=== PATIENT | female | born 1980 | race Caucasian/White ===

== ENCOUNTER 2016-10-08 19:14 | Emergency (ER) | payer OTHER, MEDICAID ==
[~2016-10-08] VITALS: Ht 170.2 cm; Wt 63.5 kg
[2016-10-08 19:19] VITALS: BP_SYST 126
--- NOTE | 2016-10-08 19:30 | NUR ---
Patient to ER bed 04 to gown for evaluation. Side rails up. Report given to SONIA.
--- NOTE | 2016-10-08 19:42 | NUR ---
Pt presents to ED with c/o bilateral feet swelling , various wound noted at lateral and medial aspect of bilateral feet, stage 1 and 2 ulcer, approximated, no discharge. Pt reported history of meth use, most recent use was 3 days ago. Appeared paranoid, stating "bugs in my eyes, tongue, under my skin, in my urine. Diarrhea from my vagina". Pt calm and cooperative, A&Ox4, denies N/V/D, denies SOB or chestpain. Will continue to monitor
--- NOTE | 2016-10-08 20:07 | NUR ---
Dr Lucero at bedside examining patient
[2016-10-08 20:27] LABS: BILIRUBIN,URINE 1+ (NEGATIVE); BLOOD, URINE NEGATIVE (NEGATIVE); CLARITY/URINE CLEAR (CLEAR); COLOR,URINE AMBER (YELLOW); GLUCOSE,URINE NEGATIVE (NEGATIVE); KETONES,URINE TRACE (NEGATIVE); LEUKOCYTE ESTERASE ,URINE NEGATIVE (NEGATIVE); NITRITE, URINE NEGATIVE (NEGATIVE); PH,URINE 6.5 (5.0-8.0); PROTEIN URINE 2+ (NEGATIVE)
--- NOTE | 2016-10-08 20:30 | NUR ---
Pelvic exam performed by Dr Lucero with RN at bedside for entire examination. Patient tolerated procedure . Patient assisted to position of comfort after examination.Tampon removed from vaginal area, procedure well tolerated.
[2016-10-08 20:36] LABS: BASOPHILS % (AUTO) 0.6 % (0.0-2.0); EOSINOPHILS # (AUTO) 0.1 K/uL (0.0-0.4); EOSINOPHILS % (AUTO) 0.9 % (0.0-4.0); HEMOGLOBIN 12.1 g/dL (12.0-16.0); LYMPHOCYTES % (AUTO) 29.5 % (20.5-51.5); MEAN CORPUSCULAR HEMOGLOBIN 33 pg (27-31); MEAN CORPUSCULAR HGB CONC 34 % (32-36); MEAN CORPUSCULAR VOLUME 95 fL (79.0-98.0); MONOCYTES # (AUTO) 0.6 K/uL (0.0-1.0); MONOCYTES % (AUTO) 8.3 % (1.7-9.3); NEUTROPHILS % (AUTO) 60.7 % (40.0-70.0); PLATELET COUNT (AUTO) 321 K/uL (130-430); RED BLOOD CELL COUNT(AUTO) 3.71 MIL/uL (4.2-6.2); RED CELL DISTRIBUTION WIDTH 11.8 % (9.0-15.0); WHITE BLOOD COUNT (AUTO) 6.7 K/uL (4.8-10.8)
[2016-10-08 20:47] LABS: CALCIUM 8.9 mg/dL (8.4-11.0); CREATININE 0.81 mg/dL (0.55-1.30); POTASSIUM 3.4 mmol/L (3.5-5.1)
[2016-10-08 20:52] LABS: ALBUMIN 3.8 g/dL (3.4-4.8); TOTAL BILIRUBIN 0.4 mg/dL (0.0-1.0); TOTAL PROTEIN, SERUM 7.8 g/dL (6.4-8.3)
[2016-10-08] MEDS ORDERED: BACITRACIN 1 GM OINT TP ONE (20:59)
[2016-10-08 21:02] LABS: PROTHROMBIN TIME 11.2 SECS (9.5-12.5)
[2016-10-08 21:07] LABS: BENZODIAZEPINE, URINE POSITIVE (NEG <=150); CANNABINOID, URINE POSITIVE (NEG <=50); METHAMPHETAMINES SCREEN,URINE POSITIVE (NEG <=500); URINE AMPHETAMINE POSITIVE (NEG <=500)
[2016-10-08 21:08] LABS: BARBITURATE, URINE NEGATIVE (NEG <=200); COCAINE, URINE NEGATIVE (NEG <=150); OPIATE, URINE NEGATIVE (NEG <=100); PHENCYCLIDINE SCREEN,URINE NEGATIVE (NEG <=25); UR TRICYCLIC ANTIDEPRESSANTS NEGATIVE (NEG <=300); URINE METHADONE NEGATIVE (NEG <=200); URINE OXYCODONE SCREEN NEGATIVE (NEG <=100); URINE PROPOXYPHENE SCREEN NEGATIVE (NEG <=300)
[2016-10-08 21:16] LABS: BACTERIA,URINE FEW /HPF (None Seen); MUCUS,URINE 2+ /LPF (None Seen); RBC,URINE 0-3 /HPF (0-3); WBC,URINE 0-3 /HPF (0-3)
[2016-10-08 22:02] VITALS: BP_SYST 122
--- NOTE | 2016-10-08 22:02 | NUR ---
Patient given written and verbal discharge instructions and verbalizes understanding. ER MD discussed with patient the results and treatment provided. Patient in stable condition. ID arm band removed. Patient educated on pain management and to follow up with PMD. Pain Scale 0/10. Opportunity for questions provided and answered.
== END 2016-10-08 22:02 | disposition home or self-care (01) ==
LOC: SED 19:14
DX: T19.2XXA Foreign body in vulva and vagina, initial encounter (principal); B89 Unspecified parasitic disease; L97.529 Non-pressure chronic ulcer of other part of left foot with unspecified severity; L97.519 Non-pressure chronic ulcer of other part of right foot with unspecified severity; F15.10 Other stimulant abuse, uncomplicated; K21.9 Gastro-esophageal reflux disease without esophagitis; Z88.0 Allergy status to penicillin; X58.XXXA Exposure to other specified factors, initial encounter; Y93.89 Activity, other specified; Y92.89 Other specified places as the place of occurrence of the external cause; Y99.8 Other external cause status
CPT/HCPCS: 36415; 80053; 80307; 81000-TC; 85025; 85610-TC; 85730-TC; 99284

== ENCOUNTER 2016-10-25 11:30 | Emergency (ER) | payer OTHER, MEDICAID ==
[~2016-10-25] VITALS: Ht 170.2 cm; Wt 63.0 kg
[2016-10-25 11:30] VITALS: BP_SYST 100
--- NOTE | 2016-10-25 11:30 | NUR ---
BROUGHT BACK TO BED #8 AND TRIAGED. REPORT GIVEN TO FABIAN
--- NOTE | 2016-10-25 11:37 | NUR ---
Dr. Martines at bedside for evaluation
--- NOTE | 2016-10-25 11:47 | NUR ---
ER at bedside examining patient.
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
--- NOTE | 2016-10-25 11:57 | NUR ---
OFF UNIT TO RADIOLOGY VIA WHEELCHAIR
--- NOTE | 2016-10-25 12:05 | NUR ---
Pt returned to ED bed 8 from Radiology.
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
--- NOTE | 2016-10-25 13:12 | NUR ---
EKG done read by Dr jones
[2016-10-25 13:16] LABS: BASOPHILS # (AUTO) 0.1 K/uL (0.0-0.2); BASOPHILS % (AUTO) 0.6 % (0.0-2.0); EOSINOPHILS # (AUTO) 0.2 K/uL (0.0-0.4); EOSINOPHILS % (AUTO) 2.5 % (0.0-4.0); HEMATOCRIT 35.4 % (36-48); HEMOGLOBIN 12.1 g/dL (12.0-16.0); LYMPHOCYTES # (AUTO) 1.7 K/uL (1.0-5.5); LYMPHOCYTES % (AUTO) 19.3 % (20.5-51.5); MEAN CORPUSCULAR HEMOGLOBIN 33 pg (27-31); MEAN CORPUSCULAR HGB CONC 34 % (32-36); MEAN CORPUSCULAR VOLUME 95 fL (79.0-98.0); MONOCYTES # (AUTO) 0.8 K/uL (0.0-1.0); MONOCYTES % (AUTO) 8.5 % (1.7-9.3); NEUTROPHILS % (AUTO) 69.1 % (40.0-70.0); PLATELET COUNT (AUTO) 304 K/uL (130-430); RED BLOOD CELL COUNT(AUTO) 3.73 MIL/uL (4.2-6.2); WHITE BLOOD COUNT (AUTO) 8.8 K/uL (4.8-10.8)
[2016-10-25] MEDS ORDERED: IOHEXOL 350 mgI/mL, 150 ML INFUS..BTL IV ONE (13:25)
[2016-10-25 13:26] LABS: CALCIUM 8.3 mg/dL (8.4-11.0); CREATININE 0.77 mg/dL (0.55-1.30); POTASSIUM 3.6 mmol/L (3.5-5.1)
[2016-10-25 13:31] LABS: ALBUMIN 3.4 g/dL (3.4-4.8); TOTAL BILIRUBIN 0.2 mg/dL (0.0-1.0); TOTAL PROTEIN, SERUM 7.2 g/dL (6.4-8.3)
--- NOTE | 2016-10-25 13:40 | NUR ---
# 20 gauge angiocath placed to LAC. Use of asceptic technique. Opsite placed over site. Blood return noted. Patient tolerated well.
--- NOTE | 2016-10-25 13:52 | NUR ---
transported to ct scan via [facility]
--- NOTE | 2016-10-25 14:17 | NUR ---
returned from ct scan,no change of condition.
--- NOTE | 2016-10-25 14:53 | NUR ---
resting in bed,vital stable.no distress noted
[2016-10-25] MEDS ORDERED: CEPHALEXIN 500 MG CAPSULE PO ONE (15:30)
--- NOTE | 2016-10-25 15:30 | NUR ---
Radiology at bedside for right hand x-ray.
[2016-10-25] MEDS ORDERED: IBUPROFEN 600 MG TABLET PO ONE (15:45)
[2016-10-25 15:50] LABS: BENZODIAZEPINE, URINE POSITIVE (NEG <=150); METHAMPHETAMINES SCREEN,URINE POSITIVE (NEG <=500); URINE AMPHETAMINE POSITIVE (NEG <=500)
[2016-10-25 15:51] LABS: BARBITURATE, URINE NEGATIVE (NEG <=200); CANNABINOID, URINE NEGATIVE (NEG <=50); COCAINE, URINE NEGATIVE (NEG <=150); OPIATE, URINE NEGATIVE (NEG <=100); PHENCYCLIDINE SCREEN,URINE NEGATIVE (NEG <=25); UR TRICYCLIC ANTIDEPRESSANTS NEGATIVE (NEG <=300); URINE METHADONE NEGATIVE (NEG <=200); URINE OXYCODONE SCREEN NEGATIVE (NEG <=100); URINE PROPOXYPHENE SCREEN NEGATIVE (NEG <=300)
--- NOTE | 2016-10-25 16:15 | NUR ---
Patient off unit for CT of head.
--- NOTE | 2016-10-25 16:25 | NUR ---
Patient returned to ED bed 8 from radiology.
[2016-10-25 17:02] VITALS: BP_SYST 120
--- NOTE | 2016-10-25 17:05 | NUR ---
Patient given written and verbal discharge instructions and verbalizes understanding. ER MD discussed with patient the results and treatment provided. Given copies of tests performed in ER. Patient in stable condition. ID arm band removed. IV catheter removed intact and dressing applied, no active bleeding. Rx of x2,tylenol and motrin given. Patient educated on pain management and to follow up with PMD. Pain Scale 0/10 . Opportunity for questions provided and answered.
== END 2016-10-25 17:02 | disposition home or self-care (01) ==
LOC: SED 11:30
DX: S62.92XA Unspecified fracture of left hand, initial encounter for closed fracture (principal); S22.20XA Unspecified fracture of sternum, initial encounter for closed fracture; M79.641 Pain in right hand; F15.10 Other stimulant abuse, uncomplicated; M54.2 Cervicalgia; K21.9 Gastro-esophageal reflux disease without esophagitis; R51 Headache; Z88.0 Allergy status to penicillin; Y04.8XXA Assault by other bodily force, initial encounter; Y93.89 Activity, other specified; Y99.8 Other external cause status; Y92.481 Parking lot as the place of occurrence of the external cause
CPT/HCPCS: 29125; 36415; 70450; 70491; 71250; 71260; 72125; 73130; 80053; 80307; 81025; 84484; 85025; 93005; 99285; Q9967

== ENCOUNTER 2017-01-11 09:53 | Emergency (ER) | payer OTHER, MEDICAID ==
[~2017-01-11] VITALS: Ht 167.6 cm; Wt 70.3 kg
[2017-01-11 09:55] VITALS: BP_SYST 112
[2017-01-11 10:05] VITALS: BP_SYST 112
== END 2017-01-11 10:05 ==
LOC: SED 09:53
DX: Z02.89 Encounter for other administrative examinations (principal); Z88.0 Allergy status to penicillin
CPT/HCPCS: 99283

== ENCOUNTER 2017-06-22 14:15 | Emergency (ER) | payer OTHER, MEDICAID ==
[~2017-06-22] VITALS: Ht 170.2 cm; Wt 61.2 kg
[2017-06-22 14:20] VITALS: BP_SYST 140
== END 2017-06-22 16:52 | disposition left against medical advice (07) ==
LOC: SED 14:15
DX: R68.89 Other general symptoms and signs (principal); Z53.21 Procedure and treatment not carried out due to patient leaving prior to being seen by health care provider